=== PATIENT | female | born 1950 | race Caucasian/White ===

== ENCOUNTER 2023-05-17 09:46 | Outpatient (RCR) | payer MEDICARE, OTHER, SELFPAY ==
--- NOTE | 2023-05-17 10:50 | OPREHPOC ---
Outpatient Therapy Plan of Care This is a Multidisciplinary Plan of Care that may contain components documented by all disciplines (PT, OT, and ST.) PT Problem 1 PT Problem #1 Knowledge Deficit PT Goal 1 Goal 1. independent and compliant with HEP Target Visit 4 PT Problem 2 PT Problem #2 Pain PT Goal 1 Goal 1. decrease pain at worst to 4/10 in the neck and lower back Target Visit 9 PT Problem 3 PT Problem #3 Impaired Range of Motion PT Goal 1 Goal 1. active cervical flexion to 40 degrees or better 2. active cervical extension to 40 degrees or better 3. bilateral cervical active sidbending to 30 degrees or better 4. bilateral cervical active rotation to 45 degrees or better 5. improve lumbar arom flexion to mid estes without support Target Visit 9 PT Problem 4 PT Problem #4 Impaired Strength PT Goal 1 Goal 1. improve bilateral UE strength to 4+/5 or better overall 2. improve bilateral LE strength to 4+/5 or better overall Target Visit 9 PT Problem 5 PT Problem #5 Impaired Functional Mobil PT Goal 1 Goal 1. patient to stand for 30 minutes or more without increased pain in the neck or back. 2. patient to report no issues looking over shoulders while driving 3. patient to squat and lift 30lbs from floor to waits without pain and with safe mechanics 4. patient to lift 10lbs from waist to shoulder/ head level without increased back or neck pain Target Visit 9
--- NOTE | 2023-05-17 10:50 | PTOPEVAL1 ---
Assessment and note entered by JT File, PT Evaluation Information Assessment Status Evaluation Diagnosis cervicalgia, neck pain Onset 05/10/23 Subjective Information patient reports she is having pain in the neck and the lower back. she reports currently the neck is worse. she reports she has been using a traction unit at home, but this is no longer helping. she has had neck pain in the past. she reports the neck feels stiff, and she has pain with turning the neck. she reports she constantly feels like she has a headache. she reports she has increased pain when looking down. she reports she did have an xray. she reports she has increased pain in the lower back as the day goes on, and with more bending/lifting activities. she reports standing is bothersome to the lower back. Reported Pain Level Pain Score 8,4: Self Report Assessment PT Clinical Summary mrs. schaeffer presents to skilled PT services for evaluation and treatment of neck and lower back pain. she presents with worse subjective complaints and symptoms of cervical spine pain. she displays decreased rom, weakness, poor posture , and decreased functional activity performance due to her pain in the neck and lower back. she displays signs and symptoms of cervical and lumbar DDD. she would benefit from continued skilled PT to improve her objective/functional deficits and progress towards a return to her prior level functional activity performance/quality of life. Plan of Care Interventions Electrical Stimulation,Hot Pack/Cold Pack,Manual Therapy,Mechanical Traction,Neuro Re-education, Patient/Caregiver Educati,Therapeutic Activities, Therapeutic Exercise PT Services Indicated Yes Treatment Frequency and 3x weekly for 9 visits Duration These treatments will address the objective and functional deficits as defined above. The patient will be advanced safely and appropriately in order for the patient to progress towards his/her prior level of function. Additional exercises will be introduced and as well as a comprehensive home exercise program upon discharge, if needed, ?to ensure carryover of functional gains achieved in the clinic. This treatment plan has been reviewed and agreement upon by the patient.
--- NOTE | 2023-06-07 09:54 | OPREHPOC ---
Outpatient Therapy Plan of Care This is a Multidisciplinary Plan of Care that may contain components documented by all disciplines (PT, OT, and ST.) PT Problem 1 PT Problem #1 Knowledge Deficit PT Goal 1 Goal 1. independent and compliant with HEP Target Visit 4 Progress Met PT Problem 2 PT Problem #2 Pain PT Goal 1 Goal 1. decrease pain at worst to 4/10 in the neck and lower back Target Visit 9 Progress Met PT Problem 3 PT Problem #3 Impaired Range of Motion PT Goal 1 Goal 1. active cervical flexion to 40 degrees or better 2. active cervical extension to 40 degrees or better 3. bilateral cervical active sidbending to 30 degrees or better 4. bilateral cervical active rotation to 45 degrees or better 5. improve lumbar arom flexion to mid estes without support Target Visit 9 Progress Partially Met PT Problem 4 PT Problem #4 Impaired Strength PT Goal 1 Goal 1. improve bilateral UE strength to 4+/5 or better overall 2. improve bilateral LE strength to 4+/5 or better overall Target Visit 9 Progress Partially Met PT Problem 5 PT Problem #5 Impaired Functional Mobil PT Goal 1 Goal 1. patient to stand for 30 minutes or more without increased pain in the neck or back. 2. patient to report no issues looking over shoulders while driving 3. patient to squat and lift 30lbs from floor to waits without pain and with safe mechanics 4. patient to lift 10lbs from waist to shoulder/ head level without increased back or neck pain Target Visit 9 Progress Met
--- NOTE | 2023-06-07 09:54 | PTOPDC ---
Assessment and note entered by Glory Wang DPT Evaluation Information Assessment Status Re-evaluation Diagnosis cervicalgia, neck pain Onset 05/10/23 Subjective Information Patient reports that she has noticed good improvement since start of PT. She reports that she is able to look over her shoulder with decreased pain and has less frequent headaches. She reports that she continues to use her home traction unit. Reported Pain Level Pain Score 4,2: Self Report Assessment PT Clinical Summary Mrs. Drake was seen for 9 visits of skilled PT with good progress towards all goals. She demonstrates improved cervical ROM, improved UE and LE strength as well as improved activity tolerance. She reports she is able to look over her shoulder to drive with greater ease and has decreased frequency of headaches. Patient is independent with HEP and appropriate for DC at this time. Plan of Care PT Services Indicated No
== END 2023-06-07 14:18 | disposition home or self-care (01) ==
LOC: CHSPT 09:46
PROVIDERS: Visit Provider Family Medicine
DX: M51.36 Other intervertebral disc degeneration, lumbar region (principal)
CPT/HCPCS: 97012; 97014; 97110; 97140; 97161; G0283

== ENCOUNTER 2024-04-24 00:37 | Inpatient (IN) | payer MEDICARE, OTHER, SELFPAY ==
[2024-04-24] VITALS (10 sets, daily range): BP systolic 128–158; BP diastolic 61–82; PULSE 76–92; RESP 10–18; TEMP 36.3–37.7; O2SAT 92–100
--- NOTE | ~2024-04-24 | XR_ITS ---
EXAMINATION: XR abdomen/kub 1V DATE: 04/25/2024 08:21 INDICATION: Right kidney stone. TECHNIQUE: A supine view of the abdomen on 2 radiographs was obtained. COMPARISON: Abdomen radiographs 04/24/2024, CT abdomen and pelvis 08/21/2014 FINDINGS: There are no dilated loops of bowel. There are gallstones in the gallbladder. There is a ri ght internal ureteral stent in expected position. There is a cluster of stones measuring up to 6 mm i n right kidney. There is a 9 mm stone at right ureteropelvic junction. IMPRESSION: 1. Cluster of stones measuring up to 6 mm in right kidney. 2. 9 mm stone at right ureteropelvic junction. 3. Right internal ureteral stent in expected position. 4. Cholelithiasis. Reviewed, dictated and finalized at location A.
--- NOTE | ~2024-04-24 | XR_ITS ---
EXAMINATION: XR abdomen/kub 1V DATE: 04/24/2024 08:35 INDICATION: Right ureteral calculi. TECHNIQUE: A supine view of the abdomen on 2 radiographs was obtained. COMPARISON: CT abdomen and pelvis 08/21/2014 FINDINGS: There are no dilated loops of bowel. There is a large volume of stool in the colon. There a re gallstones in the gallbladder. There is a 9 mm calcification in the expected area of proximal righ t ureter. There are phleboliths in the pelvis. There is a 4 mm calcification in the expected area of right ureterovesicular junction. IMPRESSION: 1. 4 mm calcification in the expected area of right ureterovesicular junction, which may be a phlebol ith or distal ureteral stone. 2. 9 mm calcification in the expected area of proximal right ureter, which may be bowel contents or a proximal ureteral stone. Reviewed, dictated and finalized at location A. IMPRESSION: 1. 4 mm calcification in the expected area of right ureterovesicular junction, which may be a phlebolith or distal ureteral stone. 2. 9 mm calcification in the expected area of proximal right ureter, which may be bowel contents or a proximal ureteral stone.
--- NOTE | ~2024-04-24 | XR_ITS ---
EXAMINATION: XR retrograde pyelo w/stent RT DATE: 04/24/2024 13:20 INDICATION: Right ureteral stone for stone extraction and stent placement. TECHNIQUE: 9 fluoroscopic images of the abdomen and pelvis were obtained during procedure performed b latonya Bonilla. Radiologist was not present for the imaging or procedure. The amount of fluoroscopy t kenneth used during this procedure was 0.2 minutes. COMPARISON: CT dated 04/24/2024 FINDINGS: Promotions Associate fluoroscopic image demonstrate several likely calcified gallstones in right upper quadrant. Inf erolateral to the gallstones are couple stones projecting over the mid right kidney. Subsequent image s demonstrate cannulation 100. Contrast injection into the right ureter and renal collecting system. Final images demonstrate placement of a right internal ureteral stent with proximal loop formed in th e right renal pelvis. IMPRESSION: 1. Fluoroscopy utilized during reported right renal stone extraction with placement of a right hospitality intern al ureteral stent in expected position. Correlate with procedure note for further detail. 2. Cholelithiasis. Reviewed, dictated and finalized at location B. IMPRESSION: 1. Fluoroscopy utilized during reported right renal stone extraction with place ment of a right internal ureteral stent in expected position. Correlate with pr ocedure note for further detail. 2. Cholelithiasis.
--- NOTE | 2024-04-24 00:14 | ADMGEN ---
This patient, Melissa Drake, was admitted to Medical Room 250-01. Patient/family oriented to hospital policies and general routines including ID bracelet, bed and alarms, visiting hours, pain management, procedures, bathroom and other care routines, personal items, smoking policy, room service/diet, and visiting hours. Information on how to activate the Rapid Response Team has been discussed. Patient/Family are encouraged to report perceived risks to care and to ask questions if they do not understand what they are told or what they should do.
[2024-04-24] MEDS: traMADol HCL (*CRX) 50 MG TABLET PO (01:28)
[2024-04-24] MEDS: SODIUM CHLORIDE 0.9% IV 1,000 ML 65 ML IV CONT ×2 (01:36→18:17)
[2024-04-24 02:07] LABS: Basophils Absolute Auto 0.1 K/mm3 (0.0-0.1); Basophils Percent Auto 0.9 % (0.2-1.2); Eosinophils Absolute Auto 0.1 K/mm3 (0-0.3); Eosinophils Percent Auto 1.3 % (0-4.4); Hematocrit 40.5 % (37.0-47.0); Hemoglobin 13.6 g/dL (12.0-15.0); Immature Granulocyte Absolute 0.03 K/mm3 (0.00-0.031); Immature Granulocyte Percent A 0.3 % (0-0.5); Lymphocytes Absolute Auto 1.66 K/mm3 (0.9-3.2); Mean Corpuscular HGB Conc 33.6 g/dl (32-36); Mean Corpuscular Hemoglobin 31.9 pg (26-34); Mean Corpuscular Volume 95.1 fl (80-100); Mean Platelet Volume 8.9 fl (7.4-10.4); Monocytes Percent Auto 9.4 % (2.6-8.5); Neutrophils Absolute Auto 7.5 K/mm3 (1.3-6.7); Neutrophils Percent Auto 72.1 % (45.5-73.1); Platelet Count Result 252 k/mm3 (150-375); Red Blood Count 4.26 M/mm3 (4.2-5.4); Red Cell Distribution Width 12.8 % (11.5-14.5); White Blood Count 10.4 K/mm3 (4.5-10.0)
[2024-04-24 02:19] LABS: Anion Gap 8 mmol/L (4-12); Blood Urea Nitrogen 16 mg/dL (7-17); Calcium 9.2 mg/dL (8.4-10.2); Carbon Dioxide 27 mmol/L (22-30); Chloride 103 mmol/L (98-107); Estimated CRCL calculation 51 ml/min; Estimated Glomerular Filt Rate > 60; Glucose 102 mg/dL (65-110); Partial Thromboplastin Time 28.2 Seconds (22.3-36.8); Potassium 3.8 mmol/L (3.4-5.0); Sodium 138 mmol/L (137-145)
--- NOTE | 2024-04-24 08:01 | WPDURCON ---
Assessment and Plan Assessment and plan (1) Right ureteral calculus: Code(s): N20.1 - Calculus of ureter Status: Acute Assessment and Plan: Patient has a 12 mm right UPJ stone as well as a distal right 5 mm stone by report. Will plan on cystoscopy, right retrograde, right ureteroscopy with stone extraction, right ureteral stent placement. The right UPJ stone will be addressed at a later point time with lithotripsy if it is visible on KUB. Will obtain KUB this morning. Urology Consult Note HPI Date Seen: 04/24/24 Time Seen: 08:01 Requesting Physician: Fab Mandujano MD Primary Care Provider: UNKNOWN,DOCTOR Consult Narrative Reason for consult: Right ureteral calculi with obstruction Narrative: Melissa Drake is a 73 year old female who was a direct admit transfer from [facility]. Patient developed some right flank pain yesterday. She was evaluated in the emergency room there and was found have a 12 mm right UPJ stone with some hydro as well as a distal right ureteral stone. She states that she has passed stones before and has not seen a urologist. She denies any fevers. She does take a baby aspirin daily. At the time my evaluation she is resting slightly comfortable but has had pain meds. Her urinalysis is negative Review of Systems Review of Systems: All systems reviewed & are unremarkable except as noted in HPI and below [facility] Family History Family History Father Acute myocardial infarction Mother Cerebrovascular accident Dementia Social History Social History Smoking status: Never smoker Alcohol intake: never Substance use: never Substance use type: does not use Do You Feel Safe in your Home?: Yes Lack of Transportation: No Lack of Food: Never True Current Housing: I Have Housing Concerned About Future Housing: No Difficulty Paying Gas/Electric Bills: No Difficulty Paying for Meds: No Currently Unemployed: No Education: High School Diploma/GED Difficulty w/ Childcare or Family Care: No Spiritual care concerns: No Meds Home Medications and Allergies Home Medications Medication Instructions Recorded Confirmed Type bupropion HCl 150 mg 24 hr tablet, 150 mg PO DAILY 04/24/24 04/24/24 History extended release calcium acetate(phosphat bind) 667 667 mg PO DAILY 04/24/24 04/24/24 History mg capsule diltiazem HCl 240 mg 240 mg PO DAILY 04/24/24 04/24/24 History capsule,extended release 24 hr, controlled (DILT-XR) ferrous sulfate 324 mg (65 mg 324 mg PO DAILY 04/24/24 04/24/24 History iron) tablet,delayed release losartan 50 mg tablet 50 mg PO DAILY 04/24/24 04/24/24 History omeprazole 40 mg capsule,delayed 40 mg PO DAILY 04/24/24 04/24/24 History release rosuvastatin 10 mg tablet 10 mg PO DAILY 04/24/24 04/24/24 History tramadol 50 mg tablet 50 mg PO Q4H PRN Pain (Scale Score 04/24/24 04/24/24 History 4-6) Allergies Allergy/AdvReac Type Severity Reaction Status Date / Time Qcwbrgt-MFY-OkJ Reductase Allergy Unknown Verified 02/09/11 13:20 Inhibitor [Odgpiku-Myt-Mxx Reductase Inhibitor] LATEX??? Allergy Mild HANDS Uncoded 05/11/05 15:17 SWELLING Vital Signs Vital Signs - 24 hr 04/24/24 00:20 04/24/24 00:48 04/24/24 06:00 Temperature 36.8 C 36.3 C L Pulse Rate 82 86 Respiratory Rate 18 18 Blood Pressure 144/72 H 128/61 Pulse Oximetry 93 92 Oxygen Delivery Room Air Exam Const: General: cooperative and healthy appearing Resp: Effort & Inspection: normal respiratory effort Cardio: Rate: regular rate Rhythm: regular rhythm Results Labs 04/24/24 02:02 04/24/24 02:02 Labs: Short CBC 04/24/24 Range/Units 02:02 WBC 10.4 H (4.5-10.0) K/mm3 Hgb 13.6 (12.0-15.0) g/dL Hct 40.5 (37.0-47.0) % Plt
--- NOTE | 2024-04-24 08:04 | WPDHPUPDATE1 ---
History and Physical Update Update Date/Time: 04/24/24 08:04 History and Physical has been reviewed, including an updated exam of the patient. There are NO changes in the patient's condition. Risks, benefits, and alternatives have been discussed and questions answered. Patient agrees to proceed with procedure. Proceed with cystoscopy, right retrograde, right ureteroscopy with stone extraction, possible laser, stent placement
--- NOTE | 2024-04-24 08:34 | PM.IMHP ---
H&P: HPI History of Present Illness Date/Time: 04/24/24 08:34 Chief Complaint: kidney stone Narrative: Melissa Drake is a 73 year old female with PMH/o THIEN, HTN, GERD, HLD, back pain who was a direct admit transfer from [facility]. Patient developed some right flank pain yesterday. She was evaluated in the emergency room there and was found have a 12 mm right UPJ stone with some hydro as well as a distal right ureteral stone. she doesnot drink or smokes reports hysterectomy and rt carpal tunnel surgery. She denies any fevers. She does take a baby aspirin daily. UA was checked and negative. She was seen and examined this am. Comfortable, rates her pain at 2 . no n/v/d. Planned cystoscopy, right retrograde, right ureteroscopy with stone extraction, right ureteral stent placement today with DR Bonilla Review of Systems Review of Systems: All systems reviewed & are unremarkable except as noted in HPI and below (h/p) [facility] Family History Family History Father Acute myocardial infarction Mother Cerebrovascular accident Dementia Social History Social History Smoking status: Never smoker Alcohol intake: never Substance use: never Substance use type: does not use Do You Feel Safe in your Home?: Yes Lack of Transportation: No Lack of Food: Never True Current Housing: I Have Housing Concerned About Future Housing: No Difficulty Paying Gas/Electric Bills: No Difficulty Paying for Meds: No Currently Unemployed: No Education: High School Diploma/GED Difficulty w/ Childcare or Family Care: No Spiritual care concerns: No Meds Home Medications and Allergies Home Medications Medication Instructions Recorded Confirmed Type bupropion HCl 150 mg 24 hr tablet, 150 mg PO DAILY 04/24/24 04/24/24 History extended release calcium acetate(phosphat bind) 667 667 mg PO DAILY 04/24/24 04/24/24 History mg capsule diltiazem HCl 240 mg 240 mg PO DAILY 04/24/24 04/24/24 History capsule,extended release 24 hr, controlled (DILT-XR) ferrous sulfate 324 mg (65 mg 324 mg PO DAILY 04/24/24 04/24/24 History iron) tablet,delayed release losartan 50 mg tablet 50 mg PO DAILY 04/24/24 04/24/24 History omeprazole 40 mg capsule,delayed 40 mg PO DAILY 04/24/24 04/24/24 History release rosuvastatin 10 mg tablet 10 mg PO DAILY 04/24/24 04/24/24 History tramadol 50 mg tablet 50 mg PO Q4H PRN Pain (Scale Score 04/24/24 04/24/24 History 4-6) Allergies Allergy/AdvReac Type Severity Reaction Status Date / Time Knvzgpk-TFY-BgE Reductase Allergy Unknown Verified 02/09/11 13:20 Inhibitor [Dnxiziw-Qpy-Wey Reductase Inhibitor] LATEX??? Allergy Mild HANDS Uncoded 05/11/05 15:17 SWELLING Vital Signs Vital Signs - 24 hr 04/24/24 00:20 04/24/24 00:48 04/24/24 06:00 Temperature 98.3 F 97.3 F L Pulse Rate 82 86 Respiratory Rate 18 18 Blood Pressure 144/72 H 128/61 Pulse Oximetry 93 92 Oxygen Delivery Room Air Exam Const: General: comfortable Eyes: General: appearance normal, both eyes and all related structures Resp: Effort & Inspection: normal respiratory effort Auscultation: clear to auscultation bilaterally Cardio: Rate: regular rate Rhythm: regular rhythm Skin: General skin exam: normal color Neuro: Motor exam (neuro): 5/5 motor strength present throughout Sensory Exam: normal sensation Extrem: General: normal to inspection Psych: Mental Status: mental status grossly normal Affect: normal affect H&P: Results Labs Labs: Short CBC 04/24/24 Range/Units 02:02 WBC 10.4 H (4.5-10.0) K/mm3 Hgb 13.6 (12.0-15.0) g/dL Hct 40.5 (37.0-47.0) % Plt Count 252 (150-375) k/mm3 BMP 04/24/24 02:02 Sodium 138 Potassium 3.8 Chloride 103 Carbon Dioxide 27 BUN 16 Creatinine 0.70 Gluc
[2024-04-24] MEDS: dilTIAZem HCL CD 240 MG CAP.24HR PO (09:17)
[2024-04-24] MEDS: buPROPion HCL XL (24 HR) 150 MG TABCR PO (09:17)
--- NOTE | 2024-04-24 10:25 | PC.NURSE ---
holding morning medications besides cardizem and wellbutrin until after surgery.
[2024-04-24] MEDS: LACTATED RINGERS 1,000 ML 30 ML IV CONT (11:28)
--- NOTE | 2024-04-24 12:00 | WPDANESEPPF ---
Anes - Initial Pre Proc Eval Procedure: Operation Date: 04/24/24 12:30 Proposed Procedures p Cystoscopy, Right Ureteroscopy, Possible Right Retrograde Pyelogram, Stone Extraction, Possible Right Ureteral Stent Placement, Possible Holmium Laser Lithotripsy - Julio Bonilla MD Date/Time: 04/24/24 12:00 Surgeon: Fab Mandujano MD Pre Op Diagnosis: Obstructive Kidney Stone Patient Data Age: 73 Gender: F Height: 1.6 m Weight: 59.9 kg Last Vital Signs Temp 37.7 C H 04/24/24 11:53 Pulse 92 04/24/24 11:53 Resp 16 04/24/24 11:53 BP 138/71 04/24/24 11:53 Pulse Ox 95 04/24/24 11:53 O2 Del Method Room Air 04/24/24 11:53 Allergies Allergy/AdvReac Type Severity Reaction Status Date / Time Wtnmloi-DIX-ZrC Reductase Allergy Unknown Verified 02/09/11 13:20 Inhibitor [Fcdnazn-Ote-Fdz Reductase Inhibitor] LATEX??? Allergy Mild HANDS Uncoded 05/11/05 15:17 SWELLING Home Medications Medication Instructions Recorded Confirmed Type bupropion HCl 150 mg 24 hr tablet, 150 mg PO DAILY 04/24/24 04/24/24 History extended release calcium acetate(phosphat bind) 667 667 mg PO DAILY 04/24/24 04/24/24 History mg capsule diltiazem HCl 240 mg 240 mg PO DAILY 04/24/24 04/24/24 History capsule,extended release 24 hr, controlled (DILT-XR) ferrous sulfate 324 mg (65 mg 324 mg PO DAILY 04/24/24 04/24/24 History iron) tablet,delayed release losartan 50 mg tablet 50 mg PO DAILY 04/24/24 04/24/24 History omeprazole 40 mg capsule,delayed 40 mg PO DAILY 04/24/24 04/24/24 History release rosuvastatin 10 mg tablet 10 mg PO DAILY 04/24/24 04/24/24 History tramadol 50 mg tablet 50 mg PO Q4H PRN Pain (Scale Score 04/24/24 04/24/24 History 4-6) Laboratory Tests 04/24/24 02:02 WBC 10.4 H K/mm3 (4.5-10.0) RBC 4.26 M/mm3 (4.2-5.4) Hgb 13.6 g/dL (12.0-15.0) Hct 40.5 % (37.0-47.0) MCV 95.1 fl (80-100) MCH 31.9 pg (26-34) MCHC 33.6 g/dl (32-36) RDW 12.8 % (11.5-14.5) Plt Count 252 k/mm3 (150-375) MPV 8.9 fl (7.4-10.4) Immature Gran % (Auto) 0.3 % (0-0.5) Neut % (Auto) 72.1 % (45.5-73.1) Lymph % (Auto) 16.0 L % (18.3-44.2) [place] % (Auto) 9.4 H % (2.6-8.5) Eos % (Auto) 1.3 % (0-4.4) Baso % (Auto) 0.9 % (0.2-1.2) Lymph # (Auto) 1.66 K/mm3 (0.9-3.2) [place] # (Auto) 1.0 H K/mm3 (0.1-0.6) Eos # (Auto) 0.1 K/mm3 (0-0.3) Baso # (Auto) 0.1 K/mm3 (0.0-0.1) Abs Immat Gran (auto) 0.03 K/mm3 (0.00-0.031) Absolute Neuts (auto) 7.5 H K/mm3 (1.3-6.7) Absolute Nucleated RBC 0.000 K/mm3 (0.0-0.012) Nucleated RBC % 0.0 % (0.0-0.2) PT 14.0 Seconds (11.1-14.7) INR 1.0 APTT 28.2 Seconds (22.3-36.8) Sodium 138 mmol/L (137-145) Potassium 3.8 mmol/L (3.4-5.0) Chloride 103 mmol/L (98-107) Carbon Dioxide 27 mmol/L (22-30) Anion Gap 8 mmol/L (4-12) BUN 16 mg/dL (7-17) Creatinine 0.70 mg/dL (0.7-1.0) Estim Creat Clear Calc 51 ml/min Estimated GFR > 60 (59 - ) Glucose 102 mg/dL (65-110) Calcium 9.2 mg/dL (8.4-10.2) Patient hx anesthesia problems: other (slow to awaken) Family hx anesthesia problems: none Results Review: All pre-operative results and documents have been reviewed as part of the pre-operative evaluation. [facility] Family History Family History Father Acute myocardial infarction Mother Cerebrovascular accident Dementia Social History Social History Smoking status: Never smoker Alcohol intake: never Substance use: never Substance use type: does not use Do You Feel Safe in your Home?: Yes Lack of Transportation: No Lack of Food: Never True Current Housing: I Have Housing Concerned About Future Housing: No [place]
[2024-04-24] MEDS: ceFAZolin 2 GM/D5W 50 ML 2 GM/50 ML BAG IVPB (12:50)
[2024-04-24] MEDS: LIDOCAINE HCL 2% GEL UROJET 10 ML PKG MUCOUS MEM (13:02)
--- NOTE | 2024-04-24 13:21 | W.PM.PROC2 ---
Procedure Note - Detailed Date of Procedure 04/24/24 Pre-op Diagnosis Right ureteral and UPJ calculus Post-op Diagnosis Same Procedure Performed Cystoscopy, right retrograde, right ureteroscopy with holmium laser, stone extraction, right ureteral stent placement 4.8 [place] contour Surgeon Julio Bonilla MD Anesthesia General Description of Procedure Patient was taken the operative suite correctly identified. Once anesthesia was obtained she was placed in dorsal lithotomy position and prepped and draped usual sterile fashion. Twenty-two Gib[place]tarian scope was inserted the bladder. There were no tumors noted. Right ureteral orifice was cannulated with a guidewire. The orifice was dilated with an 8/10 dilator. Rigid ureteral scope was inserted. The stone was visualized using laser fiber I fragment the stone. Large pieces were sent. No residual large fragments were left. Pyelogram was then performed to confirm placement of the stent. 4.8 [place] contour stent was then placed with the proximal end coiled in the renal pelvis and the distal in the bladder. Bladder was drained. 2% viscous lidocaine was inserted into the urethra patient is taken recovery stable condition. Plan will be to address the right UPJ stone with the lithotripsy at a later point time. This completes dictation. Please send a copy of op note to my office. Estimated Blood Loss 0 Drains Yes Packing No Pathology Yes Complications No immediate complications Condition Stable Disposition PACU
[2024-04-24] MEDS: HYDROmorphone HCL INJ (*CRX) 1 MG/ML SYR IV PUSH (15:18)
[2024-04-24] MEDS: PANTOPRAZOLE 40 MG TABLET PO (20:16)
[2024-04-25 04:55] VITALS: BP 131/69; PULSE 90; RESP 18; TEMP 36.6; O2SAT 98
[2024-04-25] MEDS: PANTOPRAZOLE 40 MG TABLET PO (09:26)
[2024-04-25] MEDS: dilTIAZem HCL CD 240 MG CAP.24HR PO (09:27)
[2024-04-25] MEDS: ROSUVASTATIN 10 MG TABLET PO (09:27)
[2024-04-25] MEDS: CALCIUM ACETATE 667 MG TABLET PO (09:27)
[2024-04-25] MEDS: traMADol HCL (*CRX) 50 MG TABLET PO (09:34)
--- NOTE | 2024-04-25 09:52 | WPDUROPN2 ---
Progress Note: A&P Assessment and Plan (1) Right ureteral calculus: Code(s): N20.1 - Calculus of ureter Status: Acute Assessment and Plan: S/p cystoscopy, right ureteroscopy, stone extraction, and right ureteral stent placement on 04/24/[address] Bonilla. She tolerated this procedure well. Follow-up KUB today shows 9 mm stone at right UPJ and cluster of nonobstructing right renal stones up to 6 mm. Right ureteral stent in expected position. Will plan for outpatient right ESWL for management of right UPJ stone. Will obtain urine culture today prior to discharge in preparation for surgery. Okay for discharge from urologic standpoint at any time. Subjective Subjective Date/Time Seen: 04/25/24 09:52 Interval history: Melissa is doing well today. Tolerated procedure yesterday. She is resting comfortably. Denies abdominal pain or flank pain. Denies any bladder spasms. Complaints of urinary urgency and notes very mild hematuria. Denies nausea, vomiting, fever, or chills. She is tolerating her diet. She is eager for discharge home. Review of Systems Review of Systems: All systems reviewed & are unremarkable except as noted in HPI and below Exam Narrative: General: Awake, alert, comfortable, no acute distress HEENT: Normocephalic, atraumatic, sclerae anicteric Respiratory: Normal respiratory effort, no accessory muscle use Abdomen: Nondistended, soft, nontender Skin: Normal coloration, warm and dry Neurologic: No focal neuro deficits noted Psychiatric: Appropriate mood and affect, judgment and insight intact Objective Data Vital Signs Vital Signs: Vital Signs - 24 hr 04/24/24 11:53 04/24/24 13:25 04/24/24 13:40 Temperature 99.9 F H 98.5 F Pulse Rate 92 76 77 Respiratory Rate 16 10 L 12 Blood Pressure 138/71 136/77 143/77 H Pulse Oximetry 95 97 100 Oxygen Delivery Room Air Simple Face Mask Simple Face Mask Oxygen Flow Rate 6 6 04/24/24 13:50 04/24/24 13:55 04/24/24 14:10 Temperature 98.0 F Pulse Rate 79 82 Respiratory Rate 12 12 Blood Pressure 151/78 H 154/70 H Pulse Oximetry 95 94 Oxygen Delivery Room Air Room Air Room Air Oxygen Flow Rate 04/24/24 14:00 04/24/24 15:06 04/24/24 20:23 Temperature 97.8 F 97.9 F 97.7 F Pulse Rate 88 82 89 Respiratory Rate 16 16 18 Blood Pressure 158/79 H 147/65 H 149/82 H Pulse Oximetry 95 95 92 Oxygen Delivery Oxygen Flow Rate 04/25/24 04:55 Temperature 97.9 F Pulse Rate 90 Respiratory Rate 18 Blood Pressure 131/69 Pulse Oximetry 98 Oxygen Delivery Oxygen Flow Rate Intake/Output Intake/Output: Intake & Output 04/22/24 04/23/24 04/24/24 04/25/24 23:59 23:59 23:59 23:59 Intake Total 2198.5 0 Output Total 500 Balance 1698.5 0 Meds/Results Medications: Active Medications Generic Name Dose Route Start Last Admin Trade Name Freq PRN Reason Stop Dose Admin Acetaminophen 1,000 mg 04/24/24 01:10 Acetaminophen 500 Mg Tablet PO Q6H PRN Mild Pain (1-3) or Fever Al Hydrox/Mg Hydrox/Simethicone 30 ml 04/24/24 01:10 Mag Hydrox/Al Hydrox/Simeth 30 Ml Udc PO QID PRN Dyspepsia Bupropion HCl 150 mg 04/24/24 09:00 04/25/24 09:29 Bupropion Hcl Xl (24 Hr) 150 Mg Tabcr PO Not Given DAILY EARL Calcium Acetate 667 mg 04/24/24 09:00 04/25/24 09:27 Calcium Acetate 667 Mg Tablet PO 667 mg DAILY EARL Administration Diltiazem HCl 240 mg 04/24/24 09:00 04/25/24 09:27 Diltiazem Hcl Cd 240 Mg Cap.24hr PO 240 mg DAILY EARL Administration Enoxaparin Sodium 40 mg 04/24/24 09:00 04/25/24 09:38 Enoxaparin 40 Mg/0.4 Ml Syringe SUB-Q Not Given DAILY EARL Ferrous Sulfate 325 mg 04/24/24 09:00 04/25/24 09:29 Ferrous Sulfate [address] PO Not Given DAILY EARL Hydromorphone HCl 1 mg 04/24/24 01:10 04/24/24 15:18 Hydromorphone Hcl Inj (*Crx) 1 Mg/Ml Syr IV PUSH 1 mg Q3H PRN Administration Pain Rated 7-10
[2024-04-25 13:54] VITALS: BP 122/59; PULSE 89; RESP 12; O2SAT 94
--- NOTE | 2024-04-25 14:28 | PM.DS ---
DS: Admitting Diagnosis Discharge Date 04/25/24 Admitting Diagnosis kideny stone DS: Discharge Diagnosis Discharge Diagnosis (1) Right ureteral calculus: Code(s): N20.1 - Calculus of ureter Status: Acute Assessment and Plan: - urology consult - Patient has a 12 mm right UPJ stone as well as a distal right 5 mm stone by report. Will plan on cystoscopy, right retrograde, right ureteroscopy with stone extraction, right ureteral stent placement. The right UPJ stone will be addressed at a later point time with lithotripsy if it is visible on KUB. Will obtain KUB this morning S/p cystoscopy, right ureteroscopy, stone extraction, and right ureteral stent placement on 04/24/[address] Bonilla. She tolerated this procedure well. Follow-up KUB today - 9 mm stone at right UPJ and cluster of nonobstructing right renal stones up to 6 mm. - Plan for outpatient right ESWL for management of right UPJ stone. (2) HTN (hypertension): Code(s): I10 - Essential (primary) hypertension Status: Acute Assessment and Plan: chronic problem- continue home cardizem - losartan was held overnight - monitor BP (3) HLD (hyperlipidemia): Code(s): E78.5 - Hyperlipidemia, unspecified Status: Acute Assessment and Plan: - home statin DS: Summary Hospital Course Hospital Course: Narrative: Melissa Drake is a 73 year old female with PMH/o THIEN, HTN, GERD, HLD, back pain who was a direct admit transfer from [facility]. Patient developed some right flank pain yesterday. She was evaluated in the emergency room there and was found have a 12 mm right UPJ stone with some hydro as well as a distal right ureteral stone. she doesnot drink or smokes reports hysterectomy and rt carpal tunnel surgery. She denies any fevers. She does take a baby aspirin daily. UA was checked and negative. She was seen and examined this am. Comfortable, rates her pain at 2 . no n/v/d. Planned cystoscopy, right retrograde, right ureteroscopy with stone extraction, right ureteral stent placement today with DR Bonilla 04/25- S/p cystoscopy, right ureteroscopy, stone extraction, and right ureteral stent placement on 04/24/[address] Bonilla. She is doing well. Follow-up KUB today shows 9 mm stone at right UPJ and cluster of nonobstructing right renal stones up to 6 mm. Right ureteral stent in expected position. Will plan for outpatient right ESWL for management of right UPJ stone. Will obtain urine culture today prior to discharge in preparation for surgery. Okay for discharge from urologic standpoint at any time. Time Spent with Patient Time attestation: Total time spent providing and/or coordinating discharge services: Exam Narrative: General: Awake, alert, comfortable, no acute distress HEENT: Normocephalic, atraumatic, sclerae anicteric Respiratory: Normal respiratory effort, no accessory muscle use Abdomen: Nondistended, soft, nontender Skin: Normal coloration, warm and dry Neurologic: No focal neuro deficits noted Psychiatric: Appropriate mood and affect, judgment and insight intact Const: General: comfortable Eyes: General: appearance normal, both eyes and all related structures Resp: Effort & Inspection: normal respiratory effort Auscultation: clear to auscultation bilaterally Cardio: Rate: regular rate Rhythm: regular rhythm Skin: General skin exam: normal color Neuro: Motor exam (neuro): 5/5 motor strength present throughout Sensory Exam: normal sensation Extrem: General: normal to inspection Psych: Mental Status: mental status grossly normal Affect: normal affect DS: Data Data Completed and Pending Completed studies during hospitalization: Pending at discharge 04/24/24 13:20 Surgical [PTH] Routine Discharge Plan Discharge Consulting providers: Candelario Mendes Discharging Clinician: Shaniqua Dunaway Patient Disposition: Home, Self-Care Act
== END 2024-04-25 16:30 | disposition home or self-care (01) | DRG 661 ==
PROVIDERS: Urology; Admitting Provider Internal Medicine; Visit Provider Nurse Practitioner
PROC: 0T768DZ Dilation of Right Ureter with Intraluminal Device, Via Natural or Artificial Opening Endoscopic (ICD-10-PCS; CPT 52352; principal; 2024-04-24 12:30)
DX: N20.2 Calculus of kidney with calculus of ureter (principal); I10 Essential (primary) hypertension; F41.1 Generalized anxiety disorder; E78.5 Hyperlipidemia, unspecified; M54.9 Dorsalgia, unspecified; K21.9 Gastro-esophageal reflux disease without esophagitis; Z90.710 Acquired absence of both cervix and uterus; Z79.82 Long term (current) use of aspirin
CPT/HCPCS: 36415; 74018; 74420; 80048; 82365; 85025; 85610; 85730; 87086; 88300; A9270; C1769; C2617; G0378; G0379; J0690; J1100; J1170; J1650; J2405; J2704; J3010; J7030; J7120; Q9966

== ENCOUNTER 2024-05-06 10:23 | Outpatient (CLI) | payer MEDICARE, OTHER, SELFPAY ==
--- NOTE | 2024-05-06 10:36 | ECG_ITS ---
Test Date: 2024-05-06 10:48:39 Measurements Intervals [place] Rate: 84 P: 52 WV: 168 QRS: -32 QRSD: 97 T: 53 QT: 376 QTc: 446 Interpretive Statements SINUS RHYTHM LEFT AXIS DEVIATION POSSIBLE LEFT ATRIAL ENLARGEMENT DELAYED PRECORDIAL R/S TRANSITION BASELINE ARTIFACT- I, II, III, AVR, AVL, AVF, V1-V6 BORDERLINE ECG No previous ECG available for comparison Electronically Signed On 05-06-2024 10:53:50 CDT by Kaushik Chaparro D.O.
== END 2024-05-06 10:24 | disposition home or self-care (01) ==
PROVIDERS: PCP Family Medicine; Visit Provider Urology
DX: Z01.810 Encounter for preprocedural cardiovascular examination (principal); I44.4 Left anterior fascicular block; R94.31 Abnormal electrocardiogram [ECG] [EKG]; E78.5 Hyperlipidemia, unspecified; I10 Essential (primary) hypertension
CPT/HCPCS: 93005

== ENCOUNTER 2024-05-09 00:19 | Day surgery (SDC) | payer MEDICARE, OTHER, SELFPAY ==
[2024-04-30 10:57] VITALS: BMI 23.0
--- NOTE | 2024-04-30 11:14 | PC.NURSE ---
Report to the Outpatient Waiting Room, entrance under the green pavilion located off [facility], at time __08:00AM_on date _05/09/24 . Planned Procedure Time: _10:00AM .? Time changes happen often and if your time is changed the preop area will call you the afternoon before. - You and your visitor will be asked to self-screen and do not enter if you have any COVID symptoms. Please call surgeon if you need to reschedule. - A mask is optional within the hospital at this time. Patients may have clear liquids (water, carbonated beverages, clear teas, apple juice) until 3 hours prior to surgery with a maximum of 20 ounces. - No food from midnight until time of surgery and no smoking Take only the following medications with a SIP of water on the morning of surgery: ___Diltiazem DO NOT STOP ANY OF YOUR OTHER PRESCRIPTION MEDICATIONS PRIOR TO SURGERY EXCEPT THE FOLLOWING Medications to discontinue per physician Hold your Aspirin 7 days prior to surgery per Dr Bonilla Date to take last dose_05/01/24 Hold all Vitamins, supplements, probiotics and herbs 3 days prior per Anesthesia- Date to take last dose 05/05/24. Please no make-up, nail greenlandic, hairspray, perfume, deodorant, or body powder the day of surgery.? No jewelry (including any body piercings) or valuables the day of surgery, leave them at home.? Please take a shower or bath the night before, or the morning of, surgery with an antibacterial soap.? Wear comfortable, loose fitting clothing.? - Jewelry must be removed prior to entering the operating room.? Rings and piercings that are not removed may be cut off. - The hospital will not accept responsibility for valuables.? - Please leave all valuables, including medications, at home the day of surgery. If you are going home after surgery, a licensed truck driver must drive you home.? - NO public transportation without another adult if you receive anesthesia. - We recommend that an adult stay with you for 24 hours following discharge. - We also recommend that you do not drive, make important decision, drink alcoholic beverages, or take any drugs that were not prescribed by your health care provider for at least 24 hours after your discharge time. Follow any additional instructions given to you from your surgeon. Telephone instructions given to __patient and asked if any additional questions and then verbalized understanding. Patient advised to call surgeon office or pre surgery nurse liaison [phone] if any additional questions.
[2024-05-09] VITALS (10 sets, daily range): BP systolic 104–148; BP diastolic 59–85; PULSE 68–88; RESP 13–20; TEMP 36.3–36.9; O2SAT 94–100; BMI 22.4
--- NOTE | ~2024-05-09 | XR_ITS ---
XR abdomen/kub 1V Ordering provider: Julio Bonilla MD History: . ESWL RIGHT . Comparison: April 25, 2024 FINDINGS: BOWEL: Nonobstructive bowel gas pattern. ORGANOMEGALY: None. Cholelithiasis. SIGNIFICANT PATHOLOGIC CALCIFICATIONS: Stones seen in the right kidney mid pole. Right double-J stent . OTHER: No free air is seen under the diaphragm. Levoscoliosis with degenerative changes of the spine. IMPRESSION: NO ACUTE ABDOMINAL FINDINGS. Right kidney stones with the right double-J stent. Cholelithiasis. Reviewed, dictated and finalized at location A.
--- NOTE | 2024-05-09 08:30 | WPDHPUPDATE1 ---
History and Physical Update Update Date/Time: 05/09/24 08:30 History and Physical has been reviewed, including an updated exam of the patient. There are NO changes in the patient's condition. Risks, benefits, and alternatives have been discussed and questions answered. Patient agrees to proceed with procedure. Proceed with lithotripsy of right renal calculus
[2024-05-09] MEDS: LACTATED RINGERS 1,000 ML 30 ML IV CONT (08:58)
--- NOTE | 2024-05-09 09:05 | WPDANESEPPF ---
Anes - Initial Pre Proc Eval Procedure: Operation Date: 05/09/24 10:00 Proposed Procedures p Right Extracorporeal Shock Wave Lithotripsy - Julio Bonilla MD Date/Time: 05/09/24 09:05 Surgeon: Julio Bonilla MD Pre Op Diagnosis: rt renal stone Patient Data Age: 73 Gender: F Height: 1.6 m Weight: 57.55 kg Last Vital Signs Temp 98.5 F 05/09/24 08:57 Pulse 88 05/09/24 08:57 BP 148/76 H 05/09/24 08:57 Pulse Ox 98 05/09/24 08:57 O2 Del Method Room Air 05/09/24 08:57 Allergies Allergy/AdvReac Type Severity Reaction Status Date / Time silicone Allergy Severe Itching, Verified 04/30/24 11:02 swelling of eyes hydromorphone AdvReac Intermediate Dizziness, Verified 04/30/24 11:03 vomiting Muoxrse-QCZ-PgN Reductase AdvReac Intermediate felt funny, Verified 04/30/24 10:59 Inhibitor [Pewcmwj-Qlg-Csx Reductase Inhibitor] venom-honey bee AdvReac Intermediate Swelling Verified 04/30/24 11:05 LATEX??? Allergy Mild HANDS Uncoded 04/30/24 11:00 SWELLING Home Medications Medication Instructions Recorded Confirmed Type bupropion HCl 150 mg 24 hr tablet, 150 mg PO HS 04/24/24 04/30/24 History extended release calcium acetate(phosphat bind) 667 667 mg PO BID 04/24/24 04/24/24 History mg capsule diltiazem HCl 240 mg 240 mg PO DAILY 04/24/24 04/30/24 History capsule,extended release 24 hr, controlled (DILT-XR) ferrous sulfate 324 mg (65 mg 324 mg PO HS 04/24/24 04/30/24 History iron) tablet,delayed release losartan 50 mg tablet 50 mg PO HS 04/24/24 04/30/24 History omeprazole 40 mg capsule,delayed 40 mg PO BID 04/24/24 04/30/24 History release rosuvastatin 10 mg tablet 10 mg PO DAILY 04/24/24 04/30/24 History tramadol 50 mg tablet 50 mg PO Q4H PRN Pain (Scale Score 04/24/24 04/30/24 History 4-6) aspirin 81 mg tablet,delayed 81 mg PO DAILY 04/30/24 04/30/24 History release (Adult Low Dose Aspirin) magnesium 500 mg tablet 15 mg PO DAILY 04/30/24 04/30/24 History vit B comp with W-W-kztyusdk tablet 1 tablet PO DAILY 04/30/24 04/30/24 History Patient hx anesthesia problems: none Family hx anesthesia problems: none Results Review: All pre-operative results and documents have been reviewed as part of the pre-operative evaluation. [facility] Family History Family History Father Acute myocardial infarction Mother Cerebrovascular accident Dementia Social History Social History Smoking status: Never smoker Alcohol intake: never Substance use: never Substance use type: does not use Do You Feel Safe in your Home?: Yes Lack of Transportation: No Lack of Food: Never True Current Housing: I Have Housing Concerned About Future Housing: No Difficulty Paying Gas/Electric Bills: No Difficulty Paying for Meds: No Currently Unemployed: No Education: High School Diploma/GED Difficulty w/ Childcare or Family Care: No Living arrangements: with family Additional living arrangements comments: Spiritual care concerns: No Anes - Eval Final PreProcedure Day of Procedure 05/09/24 09:05 Patient weight: normal Heart: regular rate and rhythm Lungs: clear to auscultation Airway: Mallampati scale class II Neurological: alert and oriented Last oral intake: >/= 8 hours ASA classification: II Emergent: no Anesthetic plan: proceed Anesthesia type and monitoring: general LMA and standard monitoring Results Review: All pre-operative results and documents have been reviewed as part of the pre-operative evaluation. HTN, active w gardening, walking, no cp or sob. Informed Consent: The patient's anesthetic plan and its attendant risks and benefits were discussed with the patient/family/POA. Questions were solicited and answers provided to the satisfaction of the patient/family/POA.
[2024-05-09] MEDS: ceFAZolin 2 GM/D5W 50 ML 2 GM/50 ML BAG IVPB (09:44)
--- NOTE | 2024-05-09 10:23 | W.PM.PROC2 ---
Procedure Note - Detailed Date of Procedure 05/09/24 Pre-op Diagnosis rt renal stone Post-op Diagnosis Same Procedure Performed Lithotripsy of right renal calculus Surgeon Julio Bonilla MD Anesthesia General Description of Procedure Patient was taken the operative suite correctly identified. Once anesthesia was obtained stones were localized in both planes. Two thousand five hundred shocks were given. There appeared to be fairly good fragmentation. Patient tolerated procedure well without any complications and was taken recovery stable condition. She will follow-up in 7-10 days with KUB. This is dictation. Please send a copy of op note to my office. Estimated Blood Loss 0 Drains Yes (Has right ureteral stent) Packing No Pathology None sent Complications No immediate complications Condition Stable Disposition PACU
--- NOTE | 2024-05-09 10:59 | SUR.PHASEI ---
Simple mask removed at 1055
== END 2024-05-09 12:25 | disposition home or self-care (01) ==
PROVIDERS: PCP Family Medicine; Visit Provider Urology
PROC: (CPT 50590; principal; 2024-05-09 10:00)
DX: N20.0 Calculus of kidney (principal); K80.20 Calculus of gallbladder without cholecystitis without obstruction; I10 Essential (primary) hypertension; Z79.891 Long term (current) use of opiate analgesic; Z79.82 Long term (current) use of aspirin; Z98.890 Other specified postprocedural states; Z96.0 Presence of urogenital implants; Z82.49 Family history of ischemic heart disease and other diseases of the circulatory system
CPT/HCPCS: 50590; 74018; J0690; J1100; J2405; J2704; J3010; J7120

== ENCOUNTER 2024-05-22 12:00 | Outpatient (CLI) | payer MEDICARE, OTHER, SELFPAY ==
--- NOTE | ~2024-05-22 | XR_ITS ---
XR abdomen/kub 1V Ordering provider: Julio Bonilla MD History: . KIDNEY STONE ON RIGHT SIDE . Comparison: May 09, 2024 FINDINGS: BOWEL: Fecal material in the colon which may indicate constipation. Nonobstructive bowel gas pattern. Highly suggestive gallbladder stones. ORGANOMEGALY: None. SIGNIFICANT PATHOLOGIC CALCIFICATIONS: None. Right double-J stent. Right kidney stones. OTHER: No free air is seen under the diaphragm. Levoscoliosis. Degenerative changes of the spine. Multilevel loss of height in L1, L2 on L3. IMPRESSION: NO ACUTE ABDOMINAL FINDINGS. Right kidney stones. Gallbladder stones. Constipation. Reviewed, dictated and finalized at location A.
== END 2024-05-22 12:01 | disposition home or self-care (01) ==
PROVIDERS: PCP Urology; Visit Provider Urology
DX: N20.0 Calculus of kidney (principal)
CPT/HCPCS: 74018

== ENCOUNTER 2024-06-03 02:29 | Day surgery (SDC) | payer MEDICARE, OTHER, SELFPAY ==
[2024-05-27 09:55] VITALS: BMI 21.9
--- NOTE | 2024-05-27 10:14 | PC.NURSE ---
Report to the Outpatient Waiting Room, entrance under the green pavilion located off [facility], at time ___10:45AM____ on date ___06/03/24____. Planned Procedure Time: __12:45PM .? Time changes happen often and if your time is changed the preop area will call you the afternoon before. - You and your visitor will be asked to self-screen and do not enter if you have any COVID symptoms. Please call surgeon if you need to reschedule. - A mask is optional within the hospital at this time. Patients may have clear liquids (water, carbonated beverages, clear teas, apple juice) until 3 hours prior to surgery with a maximum of 20 ounces. - No food from midnight until time of surgery and no smoking - Infants may have breast milk until 4 hours before surgery, infant formula 6 hours prior to surgery. - Children will be allowed to drink immediately following surgery.? If applicable, please bring a bottle or sippy cup to assist with drinking. Juice, water, soda, and popsicles are readily available.? For infants on formula, please bring formula the day of surgery.? Pacifiers are allowed. Take only the following medications with a SIP of water on the morning of surgery: DILTIAZEM. MAY TAKE TRAMADOL NEEDED DO NOT STOP ANY OF YOUR OTHER PRESCRIPTION MEDICATIONS PRIOR TO SURGERY EXCEPT THE FOLLOWING Medications to discontinue per physician HOLD ASPIRIN & ALL VITAMINS/SUPPLEMENTS 7 DAYS PRE-OP PER DR HARDIN__ Date to take last dose 05/27/24 Please no make-up, nail sami, hairspray, perfume, deodorant, or body powder the day of surgery.? No jewelry (including any body piercings) or valuables the day of surgery, leave them at home.? Please take a shower or bath the night before, or the morning of, surgery with an antibacterial soap.? Wear comfortable, loose fitting clothing.? Children are encouraged to wear pajamas. - Jewelry must be removed prior to entering the operating room.? Rings and piercings that are not removed may be cut off. - The hospital will not accept responsibility for valuables.? - Please leave all valuables, including medications, at home the day of surgery. If you are going home after surgery, a licensed steam train driver must drive you home.? - NO public transportation without another adult if you receive anesthesia. - We recommend that an adult stay with you for 24 hours following discharge. - We also recommend that you do not drive, make important decision, drink alcoholic beverages, or take any drugs that were not prescribed by your health care provider for at least 24 hours after your discharge time. For Pediatric surgeries, we recommend two adults accompany the child home. Follow any additional instructions given to you from your surgeon. Telephone instructions given to ____PATIENT and asked if any additional questions and then verbalized understanding. Patient advised to call surgeon office or pre surgery nurse liaison [phone] if any additional questions.
[2024-06-03] VITALS (14 sets, daily range): BP systolic 101–171; BP diastolic 58–96; PULSE 76–98; RESP 12–20; TEMP 36.6–36.8; O2SAT 92–98
--- NOTE | ~2024-06-03 | XR_ITS ---
INTRAOPERATIVE FLUOROSCOPY: CLINICAL HISTORY: 73 years old Female; RIGHT SIDE STONE RETRO/STENT EXCHANGE PROCEDURE COMMENTS: Limited intraoperative fluoroscopy of the abdomen and pelvis was performed. CUMULATIVE DOSE: 4.25 mGy FLUOROSCOPY TIME: 19.1 seconds FINDINGS/IMPRESSION: Please refer to operative note for further details. Reviewed, dictated and finalized at location A.
--- NOTE | 2024-06-03 07:57 | WPDHPUPDATE1 ---
History and Physical Update Update Date/Time: 06/03/24 07:57 History and Physical has been reviewed, including an updated exam of the patient. There are NO changes in the patient's condition. Risks, benefits, and alternatives have been discussed and questions answered. Patient agrees to proceed with procedure. Proceed with cystoscopy, right retrograde, right ureteroscopy with laser, right stent exchange
--- NOTE | 2024-06-03 09:52 | WPDANESEPPF ---
Anes - Initial Pre Proc Eval Procedure: Operation Date: 06/03/24 12:45 Proposed Procedures p Cystoscopy, Right Ureteroscopy, Possible Right Retrograde Pyelogram, Possible Right Stone Extraction, Right Stent Exchange, Possible Holmium Laser - Julio Bonilla MD Date/Time: 06/03/24 09:52 Surgeon: Julio Bonilla MD Pre Op Diagnosis: right kidney stone Patient Data Age: 73 Gender: F Height: 1.6 m Weight: 56 kg Allergies Allergy/AdvReac Type Severity Reaction Status Date / Time silicone Allergy Severe Itching, Verified 05/27/24 09:46 swelling of eyes venom-honey bee Allergy Intermediate Swelling Verified 05/27/24 09:46 oxybutynin Allergy TROUBLE Verified 05/27/24 09:48 SWALLOWING, SHAKINESS hydromorphone AdvReac Intermediate Dizziness, Verified 05/27/24 09:46 vomiting Qnvazgc-YIG-VfG Reductase AdvReac Intermediate Muscle Verified 05/27/24 09:46 Inhibitor Spasms [Waccicr-Uwb-Mle Reductase Inhibitor] Home Medications Medication Instructions Recorded Confirmed Type bupropion HCl 150 mg 24 hr tablet, 150 mg PO HS 04/24/24 05/27/24 History extended release diltiazem HCl 240 mg 240 mg PO QAM 04/24/24 05/27/24 History capsule,extended release 24 hr, controlled (DILT-XR) ferrous sulfate 324 mg (65 mg 324 mg PO HS 04/24/24 05/27/24 History iron) tablet,delayed release losartan 50 mg tablet 50 mg PO HS 04/24/24 05/27/24 History omeprazole 40 mg capsule,delayed 40 mg PO BID 04/24/24 05/27/24 History release rosuvastatin 10 mg tablet 10 mg PO DAILY 04/24/24 05/27/24 History tramadol 50 mg tablet 50 mg PO Q4H PRN Pain (Scale Score 04/24/24 05/27/24 History 4-6) aspirin 81 mg tablet,delayed 81 mg PO DAILY 04/30/24 05/27/24 History release (Adult Low Dose Aspirin) magnesium 500 mg tablet 15 mg PO DAILY 04/30/24 05/27/24 History vit B comp with N-D-czdlrksx tablet 1 tablet PO DAILY 04/30/24 05/27/24 History calcium 600 mg capsule 600 mg PO BID 05/27/24 05/27/24 History Patient hx anesthesia problems: none Family hx anesthesia problems: none Results Review: All pre-operative results and documents have been reviewed as part of the pre-operative evaluation. [facility] Family History Family History Father Acute myocardial infarction Mother Cerebrovascular accident Dementia Social History Social History Smoking status: Never smoker Alcohol intake: never Substance use: never Substance use type: does not use Do You Feel Safe in your Home?: Yes Lack of Transportation: No Lack of Food: Never True Current Housing: I Have Housing Concerned About Future Housing: No Difficulty Paying Gas/Electric Bills: No Difficulty Paying for Meds: No Currently Unemployed: No Education: High School Diploma/GED Difficulty w/ Childcare or Family Care: No Living arrangements: with family Additional living arrangements comments: HUSB Spiritual care concerns: No Anes - Eval Final PreProcedure Day of Procedure 06/03/24 09:52 Patient weight: normal Heart: regular rate and rhythm Lungs: clear to auscultation Airway: Mallampati scale class II Neurological: alert and oriented Last oral intake: >/= 8 hours ASA classification: II Emergent: no Anesthetic plan: proceed Anesthesia type and monitoring: general LMA and standard monitoring Results Review: All pre-operative results and documents have been reviewed as part of the pre-operative evaluation. Informed Consent: The patient's anesthetic plan and its attendant risks and benefits were discussed with the patient/family/POA. Questions were solicited and answers provided to the satisfaction of the patient/family/POA.
[2024-06-03] MEDS: LACTATED RINGERS 1,000 ML 30 ML IV CONT ×2 (10:00→12:44)
[2024-06-03] MEDS: ceFAZolin 2 GM/D5W 50 ML 2 GM/50 ML BAG IVPB (11:26)
[2024-06-03] MEDS: LIDOCAINE HCL 2% GEL UROJET 10 ML PKG MUCOUS MEM (11:40)
--- NOTE | 2024-06-03 11:58 | W.PM.PROC2 ---
Procedure Note - Detailed Date of Procedure 06/03/24 Pre-op Diagnosis right kidney stone Post-op Diagnosis Same Procedure Performed CYSTOSCOPY, RIGHT RETROGRADE, RIGHT URETEROSCOPY WITH LASER, RIGHT STENT EXCHANGE 4.8 ANGOLAN CONTOUR STENT Surgeon Julio Bonilla MD Anesthesia General Description of Procedure Patient was taken the operative suite correctly identified. Once anesthesia was obtained she was placed in dorsal lithotomy position and prepped and draped usual sterile fashion. Twenty-two Spanish scope was inserted the bladder. There were no tumors noted. The right ureteral orifice was visualized with the stent coming out of it. This was grasped and brought out the meatus. Sensor wire was passed through this stent up into the kidney. Ureteral access sheath was placed. Mini flexible ureteral scope was then inserted. The kidney was inspected. The 5-7 mm stone was visualized it was jagged. Using a 200 micron fiber we dusted the stone. Small pieces were flushed out. There were no residual stones noted. Pyelogram was then performed to confirm placement of the stent. 4.8 Spanish contour stent was then placed with the proximal end coiled in the renal pelvis and the distal in the bladder. Bladder was drained. 2% viscous lidocaine was inserted into the urethra and patient is taken recovery room stable condition. She will follow-up in a week's time for stent removal. Call for that appointment. This completes dictation. Please send a copy of op note to my Estimated Blood Loss 0 Drains Yes Packing No Pathology None sent Complications No immediate complications Condition Stable Disposition PACU
[2024-06-03] MEDS: fentaNYL CITRATE INJ (*CRX) 100 MCG/2 ML VIAL 25 MCG IV PUSH ×8 (12:29→13:11)
[2024-06-03] MEDS: HYDROmorphone HCL INJ (*CRX) 1 MG/ML SYR 0.5 MG IV PUSH ×2 (13:19→13:24)
[2024-06-03] MEDS: ONDANSETRON INJ 4 MG/2 ML VIAL IV PUSH (14:03)
[2024-06-03] MEDS: traMADol HCL (*CRX) 50 MG TABLET PO (14:20)
[2024-06-03] MEDS: diphenhydrAMINE HCl INJ 50 MG/ML VIAL 12.5 MG IV PUSH (15:20)
== END 2024-06-03 16:20 | disposition home or self-care (01) ==
PROVIDERS: Visit Provider Urology
PROC: (CPT 52352; principal; 2024-06-03 12:45)
DX: N20.0 Calculus of kidney (principal); I10 Essential (primary) hypertension; Z79.891 Long term (current) use of opiate analgesic; Z79.82 Long term (current) use of aspirin; Z98.890 Other specified postprocedural states; Z82.49 Family history of ischemic heart disease and other diseases of the circulatory system
CPT/HCPCS: 52356; 74420; A9270; C1758; C1769; C2617; J0690; J1100; J1171; J1200; J2003; J2405; J2704; J3010; J7120; Q9966